=== PATIENT | female | born 1965 | race African-American/Black ===

== ENCOUNTER 2017-10-13 09:38 | Outpatient (CLI) | payer OTHER ==
--- NOTE | 2017-11-02 15:41 | MMO ---
MAMMOGRAM DIGITAL SCREENING BILATERAL BASELINE: DATE: 10/13/17 HISTORY: 52-year-old female for routine bilateral screening mammogram. COMPARISON: None available. Prior mammogram from [place] has not been received as of 11/02/2017. TECHNIQUE: Digital mammographic views. Computer-aided detection (CAD) utilized. FINDINGS: There are scattered areas of fibroglandular density. There is no evidence of suspicious mass, suspicious calcifications, or architectural distortion. IMPRESSION: 1. BIRADS 1 - Negative. 2. Recommendation: routine bilateral annual screening mammogram (unless the patient develops suspici ous clinical findings that would warrant earlier imaging follow up). aliyah [] POS: JANY
== END 2017-10-13 09:39 | disposition home or self-care (01) ==
LOC: SCSMAMMO 09:38
PROVIDERS: ATTEND Obstetrics & Gynecology
DX: Z12.31 Encounter for screening mammogram for malignant neoplasm of breast (principal)
CPT/HCPCS: 77067

== ENCOUNTER 2018-10-18 10:58 | Outpatient (CLI) | payer OTHER ==
--- NOTE | 2018-10-18 14:32 | MMO ---
BILATERAL SCREENING MAMMOGRAM: DATE: 10/18/18 HISTORY: 53-year-old female for screening mammography. COMPARISON: 10/13/17, 02/09/15, 02/06/14. FINDINGS: Bilateral MLO and CC views of the breasts show scattered fibroglandular breast tissue. There is no ev idence of suspicious mass, suspicious cluster of microcalcifications, or area of architectural distor tion. Interpretation of this mammogram was performed with the assistance of computer-aided detection. IMPRESSION: BIRADS 1: Negative Annual screening mammography is recommended. POS: JANY
== END 2018-10-18 10:59 | disposition home or self-care (01) ==
LOC: SCSMAMMO 10:58
PROVIDERS: ATTEND Family Medicine
DX: Z12.31 Encounter for screening mammogram for malignant neoplasm of breast (principal)
CPT/HCPCS: 77067